=== PATIENT | male | born 1970 | race Caucasian/White ===

== ENCOUNTER 2023-04-22 08:14 | Outpatient (CLI) | payer BC, SELFPAY ==
[2023-04-26 15:52] VITALS: BMI 35.9
--- NOTE | 2023-04-26 15:52 | WPDSLEEPSTUD ---
Sleep Study Date of Study: 04/22/23 Ordering Provider: Duane HaneyMD Interpreting Physician: Caterina Leung, DO Sleep Study Type: Polysomnogram Height: 1.83 m Weight: 120.202 kg Body Mass Index: 35.9 Neck Circumference (inches): 18 [place]: 4 Reason for Sleep Study PSG on 07/11/2003 that showed an overall AHI of 35 with desaturation down to 81%. PAP Titration on 08/11/2003 showed an optimal pressure of CPAP 8 cm H2O. The patient has tried CPAP and an oral appliance in the past. Sleep History The patient is a 52-year-old male with hypertension, seasonal allergies, history pulmonary embolism and previously diagnosed sleep apnea that had a sleep study ordered by his primary care for evaluation of sleep apnea. 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 He is interested in the [employer] device. He is occasionally awakened from sleep short of breath. He frequently awakens at night with heartburn, belching or cough. He constantly snores loudly enough that others complain. He occasionally has trouble sleeping when he has a cold. He occasionally wakes up gasping for air throughout the night. He occasionally has breathing problems at night observed by himself or others. He frequently sweats excessively at night. He occasionally has heart palpitations or irregular heartbeats during the night. He rarely falls asleep during the day but never while driving. He denies sleep paralysis and cataplexy. He denies having trouble at school or work due to sleepiness. He rarely experiences vivid dreamlike scenes upon awakening or falling asleep. He denies feeling afraid of going to sleep. He rarely has nightmares rarely remembers his dreams. He rarely has thoughts racing through his mind. He rarely feels sad, depressed or anxious. He rarely has muscular tension. He rarely notices parts of his body jerk. He denies kicking during the night. He denies having crawling and aching feelings in his legs and denies having leg pain during the night. He occasionally grinds his teeth during sleep but never awakens with morning jaw pain. He is rarely bothered by pain during the day and rarely awakened by pain during the night. He occasionally wakes up feeling stiff in the morning. He rarely wakes up with sore or achy muscles. He occasionally wakes up with pain in the neck, spine and other joints. He goes to bed at 9:00 p.m. on weekdays and 11:00 p.m. on the weekends. He is able to fall asleep relatively quickly. He wakes up 1-2 times throughout the night to urinate and is able to fall back asleep within 5 minutes. He wakes up at 4:45 a.m. on week days and does not have a set wake up time on the weekends. He typically gets 7 8 hours of sleep per night. He denies staying in bed after waking up in the morning. He currently lives with his and stepson. He denies consuming any caffeinated beverages within 2 hours of bedtime. He denies engaging in physical exercise before bedtime. He will read watch television before falling asleep. He denies taking naps in the afternoon the evening. He consumes 1 caffeinated beverage per day. He consumes 6 alcoholic beverages per day. He denies tobacco and recreational drug PMFSH Past Medical History Medical History Hypertension Other pulmonary embolism without acute cor pulmonale Sleep Procedure A full night polysomnogram using the Ansible multi-channel system recorded the standard physiologic parameters including EEG, EOG, submentalis EMG, anterior tibialis EMG, EKG, body position, nasal and oral airflow using nasal pressure sensor and thermistor.? Respiratory parameters of chest and abdominal movements were recorded with Respiratory Inductance Plethysmography belts. Oxygen saturation was recorded by pulse oximetry. Video monitoring was also performed. Sleep stages, periodic limb movements, and EEG arousals were scored in 30 second epochs candicei
== END 2023-04-23 06:52 | disposition home or self-care (01) ==
LOC: ANHCSM 08:16
PROVIDERS: PCP Emergency Medicine; Visit Provider Emergency Medicine
DX: G47.33 Obstructive sleep apnea (adult) (pediatric) (principal); I10 Essential (primary) hypertension
CPT/HCPCS: 95810